=== PATIENT | male | born 1980 | race Caucasian/White ===

== ENCOUNTER 2020-04-28 08:24 | Outpatient (REF) | payer OTHER, SELFPAY | END 2020-04-28 08:25 | disposition home or self-care (01) | LOC: HO.LAB 08:24 | PROVIDERS: Visit Provider Internal Medicine | DX: Z20.828 Contact with and (suspected) exposure to other viral communicable diseases (principal) | CPT/HCPCS: C9803; U0003 ==

== ENCOUNTER → 2021-06-02 12:51 | Outpatient (BNVA) | payer OTHER, SELFPAY | PROVIDERS: PCP Family Medicine; Visit Provider Internal Medicine | DX: S40.011A Contusion of right shoulder, initial encounter (principal); S20.211A Contusion of right front wall of thorax, initial encounter; S70.12XA Contusion of left thigh, initial encounter; W13.2XXA Fall from, out of or through roof, initial encounter | CPT/HCPCS: 99202 ==

== ENCOUNTER → 2021-06-05 08:45 | Outpatient (BNVA) | payer OTHER, SELFPAY | PROVIDERS: PCP Family Medicine; Visit Provider Internal Medicine | DX: S70.12XA Contusion of left thigh, initial encounter (principal); S20.211A Contusion of right front wall of thorax, initial encounter; S49.81XA Other specified injuries of right shoulder and upper arm, initial encounter; S46.201A Unspecified injury of muscle, fascia and tendon of other parts of biceps, right arm, initial encounter; W13.2XXA Fall from, out of or through roof, initial encounter | CPT/HCPCS: 99213 ==

== ENCOUNTER → 2021-06-08 08:12 | Outpatient (BNVA) | payer OTHER, SELFPAY | PROVIDERS: PCP Family Medicine; Visit Provider Internal Medicine | DX: S40.011A Contusion of right shoulder, initial encounter (principal); S40.021A Contusion of right upper arm, initial encounter; S20.211A Contusion of right front wall of thorax, initial encounter; S70.12XA Contusion of left thigh, initial encounter; X58.XXXA Exposure to other specified factors, initial encounter | CPT/HCPCS: 99213 ==

== ENCOUNTER → 2021-06-15 10:02 | Outpatient (BNVA) | payer OTHER, SELFPAY | PROVIDERS: PCP Family Medicine; Visit Provider Internal Medicine | DX: M25.511 Pain in right shoulder (principal); M25.571 Pain in right ankle and joints of right foot; Z91.81 History of falling | CPT/HCPCS: 99213 ==

== ENCOUNTER 2021-06-26 13:22 | Outpatient (REF) | payer OTHER, SELFPAY | END 2021-06-26 13:23 | disposition home or self-care (01) | LOC: HO.MRI 13:22 | PROVIDERS: Visit Provider Internal Medicine | DX: Z13.89 Encounter for screening for other disorder (principal) ==

== ENCOUNTER → 2021-06-29 08:33 | Outpatient (BNVA) | payer OTHER, SELFPAY | PROVIDERS: PCP Family Medicine; Visit Provider Internal Medicine | DX: S40.021D Contusion of right upper arm, subsequent encounter (principal); S20.219D Contusion of unspecified front wall of thorax, subsequent encounter; X58.XXXD Exposure to other specified factors, subsequent encounter | CPT/HCPCS: 99213 ==

== ENCOUNTER → 2021-07-06 15:00 | Outpatient (BNVA) | payer OTHER, SELFPAY | PROVIDERS: PCP Family Medicine; Visit Provider Internal Medicine | DX: S40.021D Contusion of right upper arm, subsequent encounter (principal); S20.211D Contusion of right front wall of thorax, subsequent encounter; X58.XXXD Exposure to other specified factors, subsequent encounter | CPT/HCPCS: 99213 ==

== ENCOUNTER 2021-07-11 11:00 | Outpatient (RCR) | payer OTHER, SELFPAY ==
--- NOTE | 2021-06-28 09:59 | MHC.PT.EP ---
[facility] [employer] [facility] [place] [facility] [place] [facility] [address] [place] [phone] F: [phone] F: [phone] F: [phone] F: [phone] Physical Therapy Plan of Care Date of Evaluation: Date of Surgery: n/a Diagnosis: R chest wall pain Assessment: Patient is a 41 year old R handed male who presents with s/s consistent with R chest wall pain. He works with daily job demands including melba, liftin, carrying, climbing ladders. Patient past medical history is unremarkable. Current impairments include pain, posture, ROM, strength, activity tolerance and functional mobility. Functional limitations include decreased ability to lift, carry, push, pull. Patient is motivated with good rehab potential. Skilled PT will address impairments and functional limitations in order to achieve goals. Frequency and Duration: The patient will be seen 2x/week for 3 weeks Short Term Goals: I with HEP - 1 weeks Machine Setter Automatic Goals: Full pain free ROM - 3 weeks Strength 4+/5 grossly - 3 weeks Sports Physiotherapist strengght 90# or better - 3 weeks Pain free ADLs - 3 weeks Treatment Plan: Modalities to reduce pain, spasms and effusion. Manual therapy to restore motion and function. Therapeutic exercise to improve strength and flexibility. Neuromuscular re-education for posture and balance. Therapeutic activities to return to functional activities of daily living. Electronically signed by: Caio Martinez, PT Please sign and return to therapist. Thank you for your referral.
--- NOTE | 2022-03-15 08:20 | MHC.PT.DC ---
[facility] [place] [facility] [place] Office [place] Office [address] [phone] F: [phone] F: [phone] F: [phone] F: [phone] Physical Therapy Discharge Report Diagnosis: R chest wall pain Date of Surgery: n/a Date of Evaluation: 06/28/21 Date of Discharge: 09/16/21 Treatments to Date: 4 Cancellations to Date: No Shows to Date: Discharge Status: Patient Elected to Stop Discharge Summary: Pt did not return after last treatment. We will d/c at this time. 07/11: Pt reported some soreness with todays activities. IP at end of session; assess progress NV. 07/07/21: good aba for activities, added door stretches to HEP. 07/04: Pt reported no pain with activities, some soreness but reports appropriate. Assess response to Rx NV. no adverse effects. Patient is a 41 year old R handed male who presents with s/s consistent with R chest wall pain. He works with daily job demands including melba, liftin, carrying, climbing ladders. Patient past medical history is unremarkable. Current impairments include pain, posture, ROM, strength, activity tolerance and functional mobility. Functional limitations include decreased ability to lift, carry, push, pull. Patient is motivated with good rehab potential. Skilled PT will address impairments and functional limitations in order to achieve goals. Electronically signed by: Caio Martinez, PT Please sign and return to therapist. Thank you for your referral.
== END 2022-03-15 08:20 | disposition home or self-care (01) ==
LOC: HO.PTCHIC 11:00
PROVIDERS: PCP Family Medicine; Visit Provider Internal Medicine
DX: R07.89 Other chest pain (principal)
CPT/HCPCS: 97110; 97161

== ENCOUNTER → 2021-07-13 10:38 | Outpatient (BNVA) | payer OTHER, SELFPAY | PROVIDERS: PCP Family Medicine; Visit Provider Internal Medicine | DX: S20.211D Contusion of right front wall of thorax, subsequent encounter (principal); S40.021D Contusion of right upper arm, subsequent encounter; X58.XXXD Exposure to other specified factors, subsequent encounter | CPT/HCPCS: 99213 ==